=== PATIENT | female | born 1980 | race Two or more races ===

== ENCOUNTER → 2024-03-03 | Outpatient (CLI) | payer MEDICAID, SELFPAY ==
--- NOTE | 2024-03-03 08:45 | XR_ITS ---
Examination: Breast ultrasound, unilateral, right complete Date and time of exam: March 03, 2024 0916 hours INDICATIONS: Right breast pain beginning 3 months ago, mammogram February 07, 2023 11:00 circumscribed mass right breast Technique: Real-time grant scale ultrasonographic imaging performed right breast including all 4 quadrants as well as nipple retroareolar and axillary region. Findings: 10:00 cyst 7 x 4 x 7 mm 11:00 cyst 14 x 15 mm Smaller cysts, no solid nodules IMPRESSION: BI-RADS Category 2: Benign findings
--- NOTE | 2024-03-03 09:15 | XR_ITS ---
Examination: Diagnostic digital mammography, unilateral, right Computer aided detection 3-D breast Tomosynthesis, unilateral Date and time of exam: March 03, 2024 0930 hours INDICATIONS: Mammogram February 07, 2023 11:00 circumscribed mass right breast Technique: Nonmagnified MLO, CC views of the right breast have been obtained, reconstructed from 3-D Tomosynthesis images. R2 computer aided detection program utilized for evaluation of suspicious masses and/or abnormal calcifications. 3-D Tomosynthesis images obtained. Findings: The breast is heterogeneously dense, which may obscure small masses Circumscribed 13 mm nodule upper right breast is noted, likely corresponding to 10:00 cyst on the right breast sonogram today Impression: BI-RADS category 2: Benign findings Return to yearly follow-up mammography
== END | disposition home or self-care (01) ==
PROVIDERS: PCP Physician Assistant; Referring Provider Physician Assistant; Visit Provider Physician Assistant
DX: R92.321 Mammographic fibroglandular density, right breast (principal); N60.02 Solitary cyst of left breast
CPT/HCPCS: 76641; 77061; 77065; G0279